=== PATIENT | female | born 1975 | race Caucasian/White ===

== ENCOUNTER → 2016-11-16 | Outpatient (CLI) | payer OTHER ==
[~2016-11-16] MED LIST: DECONGESTANT PO; IBUP600T44 PO; LRT5 PO; PROM25TA PO
[2016-11-22 11:57] LABS: O&P SOURCE OTHER-TOTAL
== END | disposition home or self-care (01) ==
LOC: C.LAB1850 10:17
PROVIDERS: ATTEND Internal Medicine
DX: R19.7 Diarrhea, unspecified (principal); R14.0 Abdominal distension (gaseous); R10.9 Unspecified abdominal pain

== ENCOUNTER → 2017-01-12 | Day surgery (SDC) | payer BC, OTHER ==
[2017-01-03 12:50] VITALS: Ht 152.4 cm; Wt 68.2 kg
[~2017-01-12] VITALS: Ht 152.4 cm; Wt 68.2 kg
[~2017-01-12] MED LIST changes: -IBUP600T44 PO; +LIDOCAINE HCL 2% 2 ML VIAL (20MG/ML) ONE; -LRT5 PO; -PROM25TA PO; +PROPOFOL IV EMULSION 10 MG/ML 20 ML VIAL IV ONE; +SODIUM CHLORIDE 0.9% 500ML 500 ML IV ONE
--- NOTE | 2017-01-12 15:06 | Endo History and Physical ---
History & Physical Date of Service: Jan 12, 2017. Chief Complaint: Diarrhea Referring Physician: Jeanna Baez History of Present Illness 41 yo CF who presents for colonoscopy secondary to diarrhea. Past Surgical History Hx Cardiac Surgery: No Hx Internal Defibrillator: No Hx Pacemaker: No Hx Abdominal Surgery: Yes (CERVICAL CERCLAGE, TUBAL LIGATION) Hx of Implantable Prosthesis: No Hx Post-Op Nausea and Vomiting: Yes Hx Cancer Surgery: No Hx Thoracic Surgery: No Hx Orthopedic: No Hx Urinary Tract Surgery: No Family History Polyp Social History Smoking Status: Never Smoker Hx Substance Use: No Hx Alcohol Use: Yes (OCCASIONAL) Allergies Coded Allergies: No Known Allergies (Unverified , 01/12/17) Current Medications Reported Home Medications Medications Dose Route/Sig Max Daily Dose Days Date Category [Decongestant] 1 Tab PO HS PRN 01/03/17 Reported Vital Signs Weight (Kilograms): 68.18 Height (Feet): 5 Height (Inches): 0 Physical Exam General Appearance: WD/WN, no apparent distress Respiratory/Chest: Auscultation: breath sounds normal Cardiovascular: Heart Auscultation: RRR Abdomen: Bowel Sounds: normal Inspection & Palpation: soft, non-distended, no tenderness, guarding & rebound Assessment and Plan Assessment: 41 yo CF who presents for colonoscopy secondary to diarrhea. Plan: Proceed with colonoscopy.
--- NOTE | 2017-01-12 16:18 | GI REPORT ---
Procedure Date: 01/12/2017 3:56 PM Procedure: Colonoscopy Indications: Chronic diarrhea Medicines: Monitored Anesthesia Care Complications: No immediate complications. Estimated Blood Loss: Estimated blood loss: none. Procedure: Pre-Anesthesia Assessment: - Prior to the procedure, a History and Physical was performed, and patient medications and allergies were reviewed. The patient's tolerance of previous anesthesia was also reviewed. The risks and benefits of the procedure and the sedation options and risks were discussed with the patient. All questions were answered, and informed consent was obtained. Prior Anticoagulants: The patient has taken no previous anticoagulant or antiplatelet agents. ASA Grade Assessment: II - A patient with mild systemic disease. After reviewing the risks and benefits, the patient was deemed in satisfactory condition to undergo the procedure. After I obtained informed consent, the scope was passed under direct vision. Throughout the procedure, the patient's blood pressure, pulse, and oxygen saturations were monitored continuously. The scope was introduced through the anus and advanced to the terminal ileum. The colonoscopy was performed without difficulty. The patient tolerated the procedure well. The quality of the bowel preparation was good. The terminal ileum, ileocecal valve, appendiceal orifice, and rectum were photographed. Findings: Non-bleeding internal hemorrhoids were found during retroflexion. The hemorrhoids were small. Several random biopsies were obtained with cold forceps for histology in the entire colon. Fluid aspiration for cytology was performed in the entire colon. Impression: - Non-bleeding internal hemorrhoids. - Several random biopsies were obtained in the entire colon. - Fluid aspiration was performed. Recommendation: - Resume previous diet. - Continue present medications. - Repeat colonoscopy for surveillance based on pathology results. - Return to primary care physician as previously scheduled. Stephan Robert DO 01/12/2017 4:17:41 PM This report has been signed electronically. Note Initiated On: 01/12/2017 3:56 PM I attest to the content of the Intraoperative Record and orders documented therein, exceptions below
[2017-01-12 16:50] VITALS: BP 134/93; PULSE 76; O2SAT 97
--- NOTE | 2017-01-12 16:53 | Anesthesiology Progress Note ---
Anesthesia Post Op Note Date & Time Jan 12, 2017 at 16:53 Vital Signs Pain Intensity: 0 Vital Signs Past 12 Hours Date Time Temp Pulse Resp B/P (MAP) Pulse Ox O2 Delivery O2 Flow Rate FiO2 01/12/17 16:32 85 20 123/79 (94) 95 Room Air 01/12/17 16:16 112 20 106/69 (81) 94 Room Air 01/12/17 15:09 37.2 85 18 116/87 (97) 93 Room Air Notes Mental Status: alert / awake / arousable, participated in evaluation Pt Amnestic to Procedure: Yes Nausea / Vomiting: adequately controlled Pain: adequately controlled Airway Patency, RR, SpO2: stable & adequate BP & HR: stable & adequate Hydration State: stable & adequate Anesthetic Complications: no major complications apparent
--- NOTE | 2017-01-12 17:08 | Discharge Instructions ---
Endoscopy Patient Instructions Date / Procedure(s) Performed Jan 12, 2017. Colonoscopy Allergy Information Coded Allergies: No Known Allergies (Unverified , 01/12/17) Discharge Date / Findings Jan 12, 2017. Internal hemorrhoids Random colon biopsies Stool aspirate collected Medication Instructions OK to resume all medications today as prescribed Medications Dose Route/Sig Max Daily Dose Days Date Category [Decongestant] 1 Tab PO HS PRN 01/03/17 Reported Provider Instructions Activity Restrictions - No exercising or heavy lifting for 24 hours. - Do not drink alcohol the day of the procedure. - Do not drive a car or operate machinery until the day after the procedure. - Do not make any important decisions or sign important papers in 24 hours after the procedure. Following Day: - Return to full activity which may include returning to work/school. Diet Start your diet with liquids and light foods (jello, soup, juice, toast). Then eat your usual diet if not nauseated. Treatment For Common After Affects For mild abdominal pain, bloating, or excessive gas: - Rest - Eat lightly - Lie on right side Follow-Up Information Follow-up with [facility] as scheduled Anesthesia Information What You Should Know You have had a procedure that required some medicine to reduce anxiety and discomfort. This treatment is called moderate sedation. After receiving the treatment, you may be sleepy, but you will be able to breathe on your own. The effects of the treatment may last for several hours. Follow these instructions along with Activity/Diet recommendations noted above: * Do NOT do anything where dizziness or clumsiness would be dangerous. * Rest quietly at home today, then you can be up and about tomorrow. * Have a responsible person stay with you the rest of today. * You may have had an I.V. today. If so, you may take the dressing off later today. Recommendations Call your doctor if: * Trouble breathing * Continuous vomiting for more than 24 hours * Temperature above 101 degrees * Severe abdominal pain or bloating * Pain not relieved by pain medicine ordered * There is increased drainage or redness from any incision * A large amount of rectal bleeding greater than 2-3 tablespoons. (If you had a polyp/s removed or have hemorrhoids, a small amount of blood - from the rectum is to be expected.) * You have any unanswered questions or concerns. IN THE EVENT OF A SERIOUS EMERGENCY, GO TO THE NEAREST EMERGENCY ROOM Your discharge instructions were prepared by provider Stephan Robert. Patient Instructions Signature Page Yamilet Galen Patient (or Guardian) Signature/Date: I have read and understand the instructions given to me by my caregivers. Caregiver/RN/Doctor Signature/Date: The above-named patient and/or guardian has received patient instructions on this date. + Original Patient Signature Page (only) stays with chart. Please make copy for patient.
== END | disposition home or self-care (01) ==
LOC: C.GI 14:36
PROVIDERS: ATTEND Internal Medicine
DX: K52.9 Noninfective gastroenteritis and colitis, unspecified (principal); K64.8 Other hemorrhoids

== ENCOUNTER → 2017-07-04 | Outpatient (CLI) | payer OTHER ==
[~2017-07-04] MED LIST changes: -LIDOCAINE HCL 2% 2 ML VIAL (20MG/ML) ONE; -PROPOFOL IV EMULSION 10 MG/ML 20 ML VIAL IV ONE; -SODIUM CHLORIDE 0.9% 500ML 500 ML IV ONE
== END | disposition home or self-care (01) ==
LOC: C.PAPS 14:52
PROVIDERS: ATTEND Obstetrics & Gynecology
DX: Z01.419 Encounter for gynecological examination (general) (routine) without abnormal findings (principal)

== ENCOUNTER → 2018-02-23 | Outpatient (CLI) | payer OTHER ==
--- NOTE | 2018-02-23 09:52 | DIAGNOSTIC IMAGING REPORT ---
GI W/AIR SMALL BOWEL ROUTINE CLINICAL HISTORY: 43 years-old Female presenting with K52.9 Colitis, possible enteritis/jejunitis evident on recent CT. TECHNIQUE: An abdominal count room clerk radiograph was performed. A standard air contrast upper GI series was then performed. Spot images of the esophagus and stomach were obtained in multiple obliquities with upright and prone. The patient then consumed several of thin barium and a small follow-through was performed. Overhead radiographs and spot compression images were obtained. COMPARISON: CT from 02/17/2018. FINDINGS: The patient swallowed barium without difficulty. The esophagus is structurally normal without evidence of intrinsic or extrinsic mass. The esophageal mucosal pattern is normal. No gastroesophageal reflux was elicited by having the patient perform the Valsalva maneuver. The gastroesophageal junction distends normally. The stomach is normal in configuration and demonstrates normal distensibility. No mass or ulceration is identified. There was no evidence of gastritis. The duodenal bulb and sweep are unremarkable. The abdominal count room clerk radiograph shows nonobstructive bowel gas pattern and no gross pneumoperitoneum. No calcifications project over the kidneys. Multiple pelvic phleboliths noted. On the small bowel follow-through, there is normal transit time with contrast identified in the colon at 20 minutes. The small bowel mucosal pattern is normal. There is no evidence of stricture or mass. The distal/terminal ileum are normal in appearance on the spot compression views. The cecum, ascending colon, transverse colon are opacified with contrast and are normal appearing. Fluoroscopy dosage (mGy): Not available. Fluoroscopy time: 4.6 minutes. Number or time of fluoroscopic spot images: 30. IMPRESSION: Normal fluoroscopic examination of the esophagus, stomach, small bowel, and proximal colon. Electronically signed by: Cholo Jackson M.D. 02/23/2018 9:51 AM Dictated Date/Time: 02/23/2018 9:41 AM
== END | disposition home or self-care (01) ==
LOC: C.RAD 07:52
PROVIDERS: ATTEND Internal Medicine
DX: K52.9 Noninfective gastroenteritis and colitis, unspecified (principal)

== ENCOUNTER 2023-06-24 17:38 | Inpatient (IN) ==
[2023-06-24] MEDS ORDERED: KETOROLAC TROMETHAMINE 15 MG/ML VIAL IV ONE (18:00)
--- NOTE | 2023-06-24 18:03 | Emergency Department Note ---
Impression & Plan Pneumonia, Sepsis ED Provider Note NAME: FELTON GRIFFIN AGE: 48 SEX: F : 1975 ARRIVES VIA: Walk-In INFORMANT: Patient ED PROVIDER(S): Edmond Swift DO CHIEF COMPLAINT: fevers and shaking chills HPI: Patient is a 48-year-old female who presents to the ER for cough, congestion, and shaking chills. Symptoms started a week ago. She was seen evaluated on and treated for pneumonia and placed on azithromycin. She notes her symptoms have gotten significantly worse. She notes when she coughs or stands up she does urinate her self. No back pain. No belly pain. No dysuria, urgency, or frequency. No other exacerbating or remitting factors. ADDITIONAL HISTORY OBTAINED: Per HPI Chronic Medical/Social Conditions Affecting Care: Per HPI PAST MEDICAL HISTORY:See Below PAST SURGICAL HISTORY:See Below FAMILY HISTORY:See Below SOCIAL HISTORY:See Below HOME MEDICATIONS:See Below ALLERGIES:See Below VITALS:See Below PHYSICAL EXAMINATION: GENERAL: Sitting up in bed, alert, slightly ill-appearing EYE EXAM: normal conjunctiva. PERRL and EOM's grossly intact. OROPHARYNX: no exudate, no erythema, lips, buccal mucosa, and tongue normal and mucous membranes are moist NECK: supple, no nuchal rigidity, no adenopathy, non-tender LUNGS: Diffuse wheezing bilaterally. Normal chest wall mechanics HEART: Tachycardic, S1 normal and S2 normal ABDOMEN: abdomen soft, non-tender, normo-active bowel sounds, no masses, no rebound or guarding. UPPER EXTREMITIES: upper extremities are grossly normal. LOWER EXTREMITIES: No pitting edema. NEURO EXAM: Normal sensorium, cranial nerves II-XII grossly intact, normal speech, no gross weakness of arms, no gross weakness of legs. MEDICAL DECISION MAKING: Patient is a 48-year-old female who presents ER for above-stated complaint. IV was established blood work was obtained. She was found to be febrile and tachycardic. Chest x-ray shows a worsening right lower lobe infiltrate. Labs show no significant leukocytosis or anemia. INR unremarkable. BMP on LFTs bilirubin was unremarkable. Pro-Gonsalo was normal. Troponin was negative. UA was contaminated. was negative. Viral panel was negative. Patient was given IV fluids and IV Rocephin. She was updated bedside. Heart rate trended down. She was discussed with the hospitalist Dr. Matthew for further evaluation management and treatment of her pneumonia/sepsis. External Records Reviewed: 02/[address] Garvey for shoulder tendinitis Consults/Care Managements Discussions: Per [facility] Triage Nursing notes reviewed. Limited review of prior medical records performed Vital Signs: reviewed and remarkable for febrile and tachy Differential diagnosis: Differential diagnosis includes etiologies such as sepsis, UTI, pneumonia, metabolic, electrolyte abnormalities, cardiac sources, intracerebral event, toxicologic, neurological, as well as others were entertained. ER treatment provided: See below Diagnostics interpreted by me include EKG and cardiac monitoring as listed below: -Cardiac Monitoring: An order was placed for continuous cardiac monitoring. The monitor shows a rate of 120 with sinus rhythm. -ECG: Sinus tachycardia rate of 106 Normal axis No PVCs QTc 419 -Laboratory studies:Interpreted by me as stated above in MDM and shown below. Imaging studies: Xrays: As interpreted by me: Portable AP upright 1 view of the chest shows no focal infiltrate CTs show: none Procedures:none Critical Care: None Past Med/Surg History Social History Smoking Status: Never smoker Preferred Language: Macanese Feels Safe at Home: Yes Allergies Allergies Allergy/AdvReac Type Severity Reaction Status Date / Time No Known Allergies Allergy Unverified 06/24/23 18:17 Home Meds Previous Rx's Medication Instructions Recorded albuterol sulfate 90 mcg/actuation 1 inh inhalation Q6H PRN shortness 06/21/23 aerosol inhaler of breath or wheezing #8.5 grams azithromycin 250 mg tablet 250 mg PO DAILY 4 days #4 tabs 06/21/23 Results & Data (ED) Vital Signs Vital Signs - 24 hr 06/24/23 17:41 06/24/23 17:45 06/24/23 17:45 Temperature 39.0 C H Temperature Source Oral Pulse Rate 131 H 106 H Pulse Rate [Apical] Pulse Rate from SpO2 Sensor Pulse Rhythm Regular Regular Pulse Rhythm [Apical] Pulse Strength Normal Pulse Strength [Apical] Respiratory Rate 20 22 Respiratory Effort / Characteristics Non-Labored Spontaneous Respiratory Depth Normal Respiratory Pattern Regular Blood Pressure 134/80 Blood Pressure [Left Arm] Blood Pressure Mean 98 Blood Pressure Mean [Left Arm] Blood Pressure Position Sitting Blood Pressure Position [Left Arm] Pulse Oximetry 94 92 Oxygen Delivery Method Room Air Room Air Room Air Sepsis Recent Fever Within 48 Hours Yes Sepsis New/Unexplained Change in Mental Status No Sepsis Action Taken by Nursing Physician Notified 06/24/23 18:30 06/24/23 18:30 06/24/23 19:00 Temperature 38.9 C H Temperature Source Pulse Rate 113 H 101 H Pulse Rate [Apical] 106 H Pulse Rate from SpO2 Sensor Pulse Rhythm Pulse Rhythm [Apical] Regular Pulse Strength Pulse Strength [Apical] Normal Respiratory Rate 22 25 H Respiratory Effort / Characteristics Non-Labored Spontaneous Respiratory Depth Normal Respiratory Pattern Regular Blood Pressure 130/89 Blood Pressure [Left Arm] 122/85 Blood Pressure Mean 101 Blood Pressure Mean [Left Arm] 97 Blood Pressure Position Blood Pressure Position [Left Arm] Sitting Pulse Oximetry 92 93 Oxygen Delivery Method Room Air Room Air Sepsis Recent Fever Within 48 Hours Sepsis New/Unexplained Change in Mental Status Sepsis Action Taken by Nursing 06/24/23 19:30 06/24/23 20:00 06/24/23 20:30 Temperature 37.8 C H Temperature Source Pulse Rate 101 H 95 H 98 H Pulse Rate [Apical] Pulse Rate from SpO2 Sensor 98 H Pulse Rhythm Pulse Rhythm [Apical] Pulse Strength Pulse Strength [Apical] Respiratory Rate 21 28 H 27 H Respiratory Effort / Characteristics Respiratory Depth Respiratory Pattern Blood Pressure 133/94 141/92 H 136/83 Blood Pressure [Left Arm] Blood Pressure Mean 108 103 104 Blood Pressure Mean [Left Arm] Blood Pressure Position Blood Pressure Position [Left Arm] Pulse Oximetry 92 94 94 Oxygen Delivery Method Room Air Room Air Room Air Sepsis Recent Fever Within 48 Hours Sepsis New/Unexplained Change in Mental Status Sepsis Action Taken by Nursing 06/24/23 21:00 06/24/23 21:03 06/24/23 21:30 Temperature Temperature Source Pulse Rate 96 H 101 H Pulse Rate [Apical] 91 H Pulse Rate from SpO2 Sensor 97 H Pulse Rhythm Pulse Rhythm [Apical] Pulse Strength Pulse Strength [Apical] Respiratory Rate 25 H 21 28 H Respiratory Effort / Characteristics Non-Labored Spontaneous Respiratory Depth Respiratory Pattern Blood Pressure 109/88 122/85 Blood Pressure [Left Arm] Blood Pressure Mean 100 100 Blood Pressure Mean [Left Arm] Blood Pressure Position Blood Pressure Position [Left Arm] Pulse Oximetry 94 98 94 Oxygen Delivery Method Room Air Room Air Room Air Sepsis Recent Fever Within 48 Hours Sepsis New/Unexplained Change in Mental Status Sepsis Action Taken by Nursing 06/24/23 22:00 06/24/23 22:25 06/24/23 22:30 Temperature Temperature Source Pulse Rate 95 H 93 H 93 H Pulse Rate [Apical] Pulse Rate from SpO2 Sensor Pulse Rhythm Pulse Rhythm [Apical] Pulse Strength Pulse Strength [Apical] Respiratory Rate 20 23 Respiratory Effort / Characteristics Respiratory Depth Respiratory Pattern Blood Pressure 133/82 118/79 Blood Pressure [Left Arm] Blood Pressure Mean 95 87 Blood Pressure Mean [Left Arm] Blood Pressure Position Blood Pressure Position [Left Arm] Pulse Oximetry 94 93 Oxygen Delivery Method Room Air Room Air Sepsis Recent Fever Within 48 Hours Sepsis New/Unexplained Change in Mental Status Sepsis Action Taken by Nursing Laboratory Data 06/24/23 18:25 06/24/23 18:25 Lab Results 06/24/23 06/24/23 06/24/23 Range/Units 18:25 18:41 18:50 WBC 7.15 (4.8-10.8) K/ul RBC 4.57 (4.20-5.40) M/uL Hgb 13.7 (12.0-16.0) g/dl Hct 39.6 (37.0-47.0) % MCV 86.7 (80.0-100.0) fL MCH 30.0 (25.0-34.0) pg MCHC 34.6 (32.0-36.0) g/dL RDW Std Deviation 40.9 (36.4-46.3) fL RDW Coeff of Jamaal 13.0 (11.5-14.5) % Plt Count 287 (130-400) K/uL MPV 9.4 (9.4-12.4) fL Immature Gran % (Auto) 0.4 % Neut % (Auto) 77.5 % Lymph % (Auto) 14.1 % Gray % (Auto) 7.4 % Eos % (Auto) 0.3 % Baso % (Auto) 0.3 % Neut # (Auto) 5.54 (1.40-6.50) K/uL Lymph # (Auto) 1.01 L (1.20-3.40) K/uL Gray # (Auto) 0.53 (0.11-0.59) K/uL Eos # (Auto) 0.02 (0.00-0.50) K/uL Baso # (Auto) 0.02 (0.00-0.20) K/uL Immature Gran # (Auto) 0.03 (0.01-0.20) K/uL PT 11.5 (9.0-12.0) Seconds INR 1.1 (0.9-1.1) APTT 31.6 H (21.0-31.0) Seconds PTT Ratio 1.1 Sodium 134 L (136-145) mmol/L Potassium 3.5 (3.5-5.1) mmol/L Chloride 102 (98-107) mmol/L Carbon Dioxide 25 (21-32) mmol/L Anion Gap 7 (3-11) BUN 9 (6-23) mg/dl Creatinine 0.79 (0.6-1.2) mg/dl Est Cr Clr Drug Dosing 78.2 ml/min Est GFR ( Amer) 101.2 ml/min Est GFR (Non-Af Amer) 87.3 ml/min BUN/Creatinine Ratio 11.4 (10-20) Glucose 102 H (70-99(Fasting)) mg/dl Lactate 0.8 (0.4-2.0) mmol/L Calcium 8.9 (8.6-10.3) mg/dl Magnesium 2.0 (1.7-2.4) mg/dl Total Bilirubin 0.3 (0.2-1.0) mg/dl AST 26 (13-39) U/L ALT 31 (7-52) U/L Alkaline Phosphatase 51 (34-104) U/L Troponin I High Sens 4.5 (0-14) pg/ml Total Protein 7.2 (6.0-8.3) gm/dl Albumin 3.8 (3.4-5.0) gm/dl Globulin 3.4 (2.5-4.0) gm/dl Albumin/Globulin Ratio 1.1 (0.9-2) Procalcitonin < 0.05 (0-0.5) ng/ml Urine Color Yellow Urine Appearance Clear (Clear) Urine pH 5.5 (4.5-7.5) Ur Specific Ono 1.031 H (1.000-1.030) Urine Protein 2+ H (Negative) Urine Glucose (UA) Negative (Negative) Urine Ketones Trace H (Negative) Urine Blood Trace H (Negative) Urine Nitrite Negative (Negative) Urine Bilirubin Negative (Negative) Urine Urobilinogen Negative (Negative) Ur Leukocyte Esterase Negative (Negative) Urine WBC (Auto) 1-5 (0-5) /hpf Urine RBC (Auto) 5-10 H (0-4) /hpf U Hyaline Cast (Auto) 1-5 (0-5) /lpf U Epithel Cells (Auto) 20-30 H (0-5) /lpf Urine Bacteria (Auto) Negative (Negative) Urine Test (Negative) Stl C. diff Tox B Gene (Neg) Adenovirus (PCR) Not Detected (NotDetected) B. pertussis DNA (PCR) Not Detected (NotDetected) B.parapertussis DNA PCR Not Detected (NotDetected) C. pneumoniae DNA (PCR) Not Detected (NotDetected) Coronavirus OC43 (PCR) Not Detected (NotDetected) Coronavirus HKU1 (PCR) Not Detected (NotDetected) Coronavirus 229E (PCR) Not Detected (NotDetected) SARS-CoV-2 (PCR) Not Detected (NotDetected) Coronavirus NL63 (PCR) Not Detected (NotDetected) Human Metapneumovir PCR Not Detected (NotDetected) Influenza Type A (PCR) Not Detected (NotDetected) Influenza Type B (PCR) Not Detected (NotDetected) M. pneumoniae (PCR) Not Detected (NotDetected) Parainfluenza 1 (PCR) Not Detected (NotDetected) Parainfluenza 2 (PCR) Not Detected (NotDetected) Parainfluenza 3 (PCR) Not Detected (NotDetected) Parainfluenza 4 (PCR) Not Detected (NotDetected) RSV (PCR) Not Detected (NotDetected) Entero/Rhino (PCR) Not Detected (NotDetected) 06/24/23 Range/Units 21:24 WBC (4.8-10.8) K/ul RBC (4.20-5.40) M/uL Hgb (12.0-16.0) g/dl Hct (37.0-47.0) % MCV (80.0-100.0) fL MCH (25.0-34.0) pg MCHC (32.0-36.0) g/dL RDW Std Deviation (36.4-46.3) fL RDW Coeff of Jamaal (11.5-14.5) % Plt Count (130-400) K/uL MPV (9.4-12.4) fL Immature Gran % (Auto) % Neut % (Auto) % Lymph % (Auto) % Gray % (Auto) % Eos % (Auto) % Baso % (Auto) % Neut # (Auto) (1.40-6.50) K/uL Lymph # (Auto) (1.20-3.40) K/uL Gray # (Auto) (0.11-0.59) K/uL Eos # (Auto) (0.00-0.50) K/uL Baso # (Auto) (0.00-0.20) K/uL Immature Gran # (Auto) (0.01-0.20) K/uL PT (9.0-12.0) Seconds INR (0.9-1.1) APTT (21.0-31.0) Seconds PTT Ratio Sodium (136-145) mmol/L Potassium (3.5-5.1) mmol/L Chloride (98-107) mmol/L Carbon Dioxide (21-32) mmol/L Anion Gap (3-11) BUN (6-23) mg/dl Creatinine (0.6-1.2) mg/dl Est Cr Clr Drug Dosing ml/min Est GFR ( Amer) ml/min Est GFR (Non-Af Amer) ml/min BUN/Creatinine Ratio (10-20) Glucose (70-99(Fasting)) mg/dl Lactate (0.4-2.0) mmol/L Calcium (8.6-10.3) mg/dl Magnesium (1.7-2.4) mg/dl Total Bilirubin (0.2-1.0) mg/dl AST (13-39) U/L ALT (7-52) U/L Alkaline Phosphatase (34-104) U/L Troponin I High Sens (0-14) pg/ml Total Protein (6.0-8.3) gm/dl Albumin (3.4-5.0) gm/dl Globulin (2.5-4.0) gm/dl Albumin/Globulin Ratio (0.9-2) Procalcitonin (0-0.5) ng/ml Urine Color Urine Appearance (Clear) Urine pH (4.5-7.5) Ur Specific Ono (1.000-1.030) Urine Protein (Negative) Urine Glucose (UA) (Negative) Urine Ketones (Negative) Urine Blood (Negative) Urine Nitrite (Negative) Urine Bilirubin (Negative) Urine Urobilinogen (Negative) Ur Leukocyte Esterase (Negative) Urine WBC (Auto) (0-5) /hpf Urine RBC (Auto) (0-4) /hpf U Hyaline Cast (Auto) (0-5) /lpf U Epithel Cells (Auto) (0-5) /lpf Urine Bacteria (Auto) (Negative) Urine Test Negative (Negative) Stl C. diff Tox B Gene Negative Cdiff Gene (Neg) Adenovirus (PCR) (NotDetected) B. pertussis DNA (PCR) (NotDetected) B.parapertussis DNA PCR (NotDetected) C. pneumoniae DNA (PCR) (NotDetected) Coronavirus OC43 (PCR) (NotDetected) Coronavirus HKU1 (PCR) (NotDetected) Coronavirus 229E (PCR) (NotDetected) SARS-CoV-2 (PCR) (NotDetected) Coronavirus NL63 (PCR) (NotDetected) Human Metapneumovir PCR (NotDetected) Influenza Type A (PCR) (NotDetected) Influenza Type B (PCR) (NotDetected) M. pneumoniae (PCR) (NotDetected) Parainfluenza 1 (PCR) (NotDetected) Parainfluenza 2 (PCR) (NotDetected) Parainfluenza 3 (PCR) (NotDetected) Parainfluenza 4 (PCR) (NotDetected) RSV (PCR) (NotDetected) Entero/Rhino (PCR) (NotDetected) Administered Medications Benzonatate (Benzonatate 100 Mg Capsule) 100 mg PO TID PRN PRN Reason: Cough Stop: 07/24/23 20:50 Last Admin: 06/24/23 20:59 Dose: 100 mg Documented By: DML Discontinued Medications Acetaminophen (Acetaminophen 325 Mg Tab) 650 mg PO NOW STA Stop: 06/24/23 19:27 Last Admin: 06/24/23 19:35 Dose: 650 mg Documented By: DML Sodium Chloride (Nss) 1,000 mls @ 999 mls/hr IV .Q1H1M TRELL Stop: 06/24/23 20:00 Last Infusion: 06/24/23 21:41 Dose: Infused Documented By: Admin: 06/24/23 20:40 Dose: 999 mls/hr Documented By: Infusion: 06/24/23 20:30 Dose: Infused Documented By: Admin: 06/24/23 19:29 Dose: 999 mls/hr Documented By: HAYLEE Ceftriaxone Sodium (Rocephin) 2,000 mg in 50 mls @ 100 mls/hr IV NOW STA Stop: 06/24/23 19:03 Last Infusion: 06/24/23 20:01 Dose: Infused Documented By: Admin: 06/24/23 19:31 Dose: 100 mls/hr Documented By: HAYLEE Metronidazole (Flagyl) 500 mg in 100 mls @ 100 mls/hr IV NOW STA; Protocol Stop: 06/24/23 21:39 Last Admin: 06/24/23 21:46 Dose: 100 mls/hr Documented By: HAYLEE Ipratropium Bivalve (Ipratropium Bivalve Neb Soln 0.02% 2.5 Ml Vial) 0.5 mg INH NOW STA Stop: 06/24/23 20:45 Last Admin: 06/24/23 21:02 Dose: 0.5 mg Documented By: FRANKLIN Ketorolac Tromethamine (Ketorolac Tromethamine 15 Mg/Ml Vial) 15 mg IV NOW ONE Stop: 06/24/23 18:01 Last Admin: 06/24/23 19:28 Dose: 15 mg Documented By: HAYLEE Levalbuterol HCl (Levalbuterol 1.25 Mg/3 Ml Neb) 1.25 mg NEB NOW STA Stop: 06/24/23 20:45 Last Admin: 06/24/23 21:02 Dose: 1.25 mg Documented By: FRANKLIN Imaging Data Radiologist's Impression: Chest X-Ray 06/24/23 17:45 SINGLE VIEW CHEST CLINICAL HISTORY: Sepsis. FINDINGS: An AP, portable, upright chest radiograph is compared to chest x-ray and chest CT dated 06/21/2023. The cardiomediastinal silhouette is unremarkable. There is mild patchy airspace consolidation at the right lung base. No large pleural effusion or pneumothorax is seen. The bony thorax is grossly intact. IMPRESSION: Airspace consolidation is seen at the right lung base, typical for pneumonia/aspiration pneumonitis. This has modestly worsened as compared to 06/21/2023. Radiographic follow-up to resolution is recommended. ACT 112: Negative or not required by law. Electronically signed by: Thomas Cruz M.D. 06/24/2023 6:12 PM Discharge Plan Visit Data Chief Complaint: Cough Stated Complaint: PNEUMONIA NOT IMPROVING,COUGH,CHILLS,INCONTINENCE ED Provider: Edmond Swift Discharge Problem: Pneumonia, Sepsis Forms Stand Alone Forms: [facility] [employer] Prescriptions Prescriptions: No Action azithromycin 250 mg tablet 250 mg PO DAILY 4 Days Qty: 4 0RF Rx Instructions: start on day 2 of therapy albuterol sulfate 90 mcg/actuation HFA aerosol inhaler 1 inh inhalation Q6H PRN (Reason: shortness of breath or wheezing) Qty: 8.5 0RF Referrals Referrals: Junior Grimaldo MD [Physician] - Discharge Problem: Pneumonia Qualifiers: Pneumonia type: due to unspecified organism Laterality: unspecified laterality Lung location: unspecified part of lung Qualified Code(s): J18.9 - Pneumonia, unspecified organism Sepsis Qualifiers: Sepsis type: sepsis due to unspecified organism Sepsis acute organ dysfunction status: unspecified Qualified Code(s): A41.9 - Sepsis, unspecified organism
--- NOTE | 2023-06-24 18:13 | XRay Report ---
SINGLE VIEW CHEST CLINICAL HISTORY: Sepsis. FINDINGS: An AP, portable, upright chest radiograph is compared to chest x-ray and chest CT dated . The cardiomediastinal silhouette is unremarkable. There is mild patchy airspace consolidatio n at the right lung base. No large pleural effusion or pneumothorax is seen. The bony thorax is gross ly intact. IMPRESSION: Airspace consolidation is seen at the right lung base, typical for pneumonia/aspiration p neumonitis. This has modestly worsened as compared to 06/21/2023. Radiographic follow-up to resolutio n is recommended. ACT 112: Negative or not required by law. Electronically signed by: Thomas Cruz M.D. 06/24/2023 6:12 PM
[2023-06-24] MEDS ORDERED: cefTRIAXone SODIUM 2,000 MG/50 ML BAG IV STA (18:34)
[2023-06-24 19:07] LABS: Appearance Urine Clear (Clear); Bacteria Urine Automated Negative (Negative); Bilirubin Urine Negative (Negative); Blood Urine Trace (Negative); Color Urine Yellow; Epithelial Cell Urine Auto 20-30 /lpf (0-5); Glucose Urine UA Negative (Negative); Ketones Urine Trace (Negative); Leukocyte Esterase Urine Negative (Negative); Nitrite Urine Negative (Negative); Protein Urine 2+ (Negative); Specific Gravity Urine 1.031 (1.000-1.030); Urobilinogen Urine Negative (Negative); pH Urine 5.5 (4.5-7.5)
[2023-06-24 19:21] LABS: Basophils # (auto) 0.02 K/uL (0.00-0.20); Basophils % (auto) 0.3 %; Eosinophils # (auto) 0.02 K/uL (0.00-0.50); Eosinophils % (auto) 0.3 %; Hematocrit (blood only) 39.6 % (37.0-47.0); Hemoglobin 13.7 g/dl (12.0-16.0); Immature Granulocytes # (auto) 0.03 K/uL (0.01-0.20); Immature Granulocytes % (auto) 0.4 %; Lymphocytes # (auto) 1.01 K/uL (1.20-3.40); Lymphocytes % (auto) 14.1 %; Mean Corpuscular Hgb Conc 34.6 g/dL (32.0-36.0); Mean Corpuscular Volume 86.7 fL (80.0-100.0); Mean Platelet Volume 9.4 fL (9.4-12.4); Monocytes # (auto) 0.53 K/uL (0.11-0.59); Monocytes % (auto) 7.4 %; Neutrophils # (auto) 5.54 K/uL (1.40-6.50); Neutrophils % (auto) 77.5 %; Platelet Count 287 K/uL (130-400); RDW Standard Deviation 40.9 fL (36.4-46.3); Red Blood Count 4.57 M/uL (4.20-5.40); White Blood Count 7.15 K/ul (4.8-10.8)
[2023-06-24] MEDS ORDERED: ACETAMINOPHEN 325 MG TAB PO STA (19:26)
[2023-06-24 19:27] LABS: Albumin Globulin Ratio 1.1 (0.9-2); Albumin Level 3.8 gm/dl (3.4-5.0); BUN Creatinine Ratio 11.4 (10-20); Bilirubin,Total 0.3 mg/dl (0.2-1.0); Calcium 8.9 mg/dl (8.6-10.3); Creatinine Clr Calc Pharmacy 78.2 ml/min; Est GFR (African American) 101.2 ml/min; Est GFR (Non-African American) 87.3 ml/min; Globulin 3.4 gm/dl (2.5-4.0); Potassium 3.5 mmol/L (3.5-5.1); Total Protein 7.2 gm/dl (6.0-8.3)
[2023-06-24] MEDS: SODIUM CHLORIDE 0.9% 1,000 ML IV SCH ×2 (19:29→20:40)
[2023-06-24 19:32] LABS: Troponin I High Sensitivity 4.5 pg/ml (0-14)
[2023-06-24 19:36] LABS: INR 1.1 (0.9-1.1); Partial Thromboplastin Ratio 1.1; Partial Thromboplastin Time 31.6 Seconds (21.0-31.0); Prothrombin Time 11.5 Seconds (9.0-12.0)
[2023-06-24 19:51] LABS: Adenovirus PCR Not Detected (NotDetected); Bordetella parapertussis PCR Not Detected (NotDetected); Bordetella pertussis PCR Not Detected (NotDetected); Chlamydia pneumoniae PCR Not Detected (NotDetected); Coronavirus 229E PCR Not Detected (NotDetected); Coronavirus CoV-2 (COVID19)PCR Not Detected (NotDetected); Coronavirus HKU1 PCR Not Detected (NotDetected); Coronavirus NL63 PCR Not Detected (NotDetected); Coronavirus OC43PCR Not Detected (NotDetected); Human Metapneumovirus PCR Not Detected (NotDetected); Influenza A PCR Not Detected (NotDetected); Influenza B PCR Not Detected (NotDetected); Mycoplasma pneumoniae PCR Not Detected (NotDetected); Parainfluenza Virus 1 PCR Not Detected (NotDetected); Parainfluenza Virus 2 PCR Not Detected (NotDetected); Parainfluenza Virus 3 PCR Not Detected (NotDetected); Parainfluenza Virus 4 PCR Not Detected (NotDetected); Respiratory Syncytial VirusPCR Not Detected (NotDetected); Rhinovirus/Enterovirus PCR Not Detected (NotDetected)
[2023-06-24] MEDS ORDERED: NSS + 20MEQ KCL 20 MEQ/1,000 ML BAG IV ONE (19:59)
[2023-06-24] MEDS ORDERED: metroNIDAZOLE 500 MG/100 ML BAG IV STA (20:40)
[2023-06-24] MEDS ORDERED: LEVALBUTEROL 1.25 MG/3 ML NEB NEB STA (20:44)
[2023-06-24] MEDS ORDERED: XOPENEX/ATROVENT 1.25mg/0.5MG NEB COMBO NEB STA (20:44)
[2023-06-24] MEDS ORDERED: IPRATROPIUM BROMIDE NEB SOLN 0.02% 2.5 ML VIAL INH STA (20:44)
--- NOTE | 2023-06-24 20:44 | History & Physical Report ---
Date of Service June 24, 2023 Assessment & Plan (1) Sepsis: Plan: Secondary to community-acquired pneumonia Mycoplasma on PCR from recent ER visit Failed outpatient treatment Antibiotic associated diarrhea Rule out C. difficile Medical telemetry CS, Levaquin Stool C. difficile DVT prophylaxis Lovenox subcu Full code Text document was generated using [employer] voice recognition software. It may contain grammatical or spelling errors. Kindly contact undersigned for clarification of any documentation item in question. History of Present Illness Chief Complaint: Worsening cough, weakness Primary Care Provider: NO PCP History obtained from patient, family, and records. No significant medical history. 1 week history of dry cough symptoms associated with chest pain, myalgias and fever. Denies aspiration. Not sure about sick contacts. Patient has received COVID-19 vaccination. Patient seen at the ER 3 days ago. Chest x-ray showed right middle lobe pneumonia. PCR test positive for mycoplasma pneumonia. Patient discharged on azithromycin and albuterol inhaler course. Worsening symptoms and shortness of breath despite compliance with medications. Cough symptoms now junky. Loose stools without abdominal pain. Patient returned to ER for evaluation. Ceftriaxone administered at the ER. Medical History as above Surgical History : Family History : Personal/Social history : Allergies Allergy/AdvReac Type Severity Reaction Status Date / Time No Known Allergies Allergy Unverified 06/24/23 18:17 Home Medications Medication Instructions Recorded Confirmed Type albuterol sulfate 90 mcg/actuation 1 inh inhalation Q6H PRN shortness 06/21/23 06/24/23 Rx aerosol inhaler of breath or wheezing #8.5 grams azithromycin 250 mg tablet 250 mg PO DAILY 4 days #4 tabs 06/21/23 06/24/23 Rx Past Med/Surg History Social History Smoking Status: Never smoker Preferred Language: German Communication Ability: Effective Ink Technician Required: No Beliefs That Will Affect Care: None Current Living Situation: Spouse Feels Safe at Home: Yes Safety Concerns: Feels Safe At This Time Assistive Devices: None Results & Data Results & Data Vital Signs (Past 12 Hours) Vital Signs Temp Pulse Pulse Resp BP BP Pulse Ox 06/24/23 20:00 37.8 C H 95 H 28 H 141/92 H 94 06/24/23 19:30 101 H 21 133/94 92 06/24/23 19:00 38.9 C H 101 H 25 H 130/89 93 06/24/23 18:30 106 H 22 122/85 92 06/24/23 18:30 113 H 06/24/23 17:45 106 H 22 92 06/24/23 17:45 06/24/23 17:41 39.0 C H 131 H 20 134/80 94 O2 Del Method 06/24/23 20:00 Room Air 06/24/23 19:30 Room Air 06/24/23 19:00 Room Air 06/24/23 18:30 Room Air 06/24/23 18:30 06/24/23 17:45 Room Air 06/24/23 17:45 Room Air 06/24/23 17:41 Room Air Laboratory Results Laboratory Results WBC 7.15 K/ul (4.8-10.8) 06/24/23 18:25 RBC 4.57 M/uL (4.20-5.40) 06/24/23 18:25 Hgb 13.7 g/dl (12.0-16.0) 06/24/23 18:25 Hct 39.6 % (37.0-47.0) 06/24/23 18:25 MCV 86.7 fL (80.0-100.0) 06/24/23 18:25 MCH 30.0 pg (25.0-34.0) 06/24/23 18:25 MCHC 34.6 g/dL (32.0-36.0) 06/24/23 18:25 RDW Std Deviation 40.9 fL (36.4-46.3) 06/24/23 18:25 RDW Coeff of [place]al 13.0 % (11.5-14.5) 06/24/23 18: Plt Count 287 K/uL (130-400) 06/24/23 18:25 MPV 9.4 fL (9.4-12.4) 06/24/23 18:25 Immature Gran % (Auto) 0.4 % 06/24/23 18:25 Neut % (Auto) 77.5 % 06/24/23 18:25 Lymph % (Auto) 14.1 % 06/24/23 18:25 [place] % (Auto) 7.4 % 06/24/23 18:25 Eos % (Auto) 0.3 % 06/24/23 18:25 Baso % (Auto) 0.3 % 06/24/23 18:25 Neut # (Auto) 5.54 K/uL (1.40-6.50) 06/24/23 18:25 Lymph # (Auto) 1.01 K/uL (1.20-3.40) L 06/24/23 18:25 [place] # (Auto) 0.53 K/uL (0.11-0.59) 06/24/23 18:25 Eos # (Auto) 0.02 K/uL (0.00-0.50) 06/24/23 18:25 Baso # (Auto) 0.02 K/uL (0.00-0.20) 06/24/23 18:25 Immature Gran # (Auto) 0.03 K/uL (0.01-0.20) 06/24/23 18:25 PT 11.5 Seconds (9.0-12.0) 06/24/23 18:25 INR 1.1 (0.9-1.1) 06/24/23 18:25 APTT 31.6 Seconds (21.0-31.0) H 06/24/23 18:25 PTT Ratio 1.1 06/24/23 18:25 Sodium 134 mmol/L (136-145) L 06/24/23 18:25 Potassium 3.5 mmol/L (3.5-5.1) 06/24/23 18:25 Chloride 102 mmol/L (98-107) 06/24/23 18:25 Carbon Dioxide 25 mmol/L (21-32) 06/24/23 18:25 Anion Gap 7 (3-11) 06/24/23 18:25 BUN 9 mg/dl (6-23) 06/24/23 18:25 Creatinine 0.79 mg/dl (0.6-1.2) 06/24/23 18:25 Est Cr Clr Drug Dosing 78.2 ml/min 06/24/23 18:25 Est GFR ( Amer) 101.2 ml/min 06/24/23 18:25 Est GFR (Non-Af Amer) 87.3 ml/min 06/24/23 18:25 BUN/Creatinine Ratio 11.4 (10-20) 06/24/23 18:25 Glucose 102 mg/dl (70-99(Fasting)) H 06/24/23 18:25 Lactate 0.8 mmol/L (0.4-2.0) 06/24/23 18:41 Calcium 8.9 mg/dl (8.6-10.3) 06/24/23 18:25 Magnesium 2.0 mg/dl (1.7-2.4) 06/24/23 18:25 Total Bilirubin 0.3 mg/dl (0.2-1.0) 06/24/23 18:25 AST 26 U/L (13-39) 06/24/23 18:25 ALT 31 U/L (7-52) 06/24/23 18:25 Alkaline Phosphatase 51 U/L (34-104) 06/24/23 18:25 Troponin I High Sens 4.5 pg/ml (0-14) 06/24/23 18:25 Total Protein 7.2 gm/dl (6.0-8.3) 06/24/23 18:25 Albumin 3.8 gm/dl (3.4-5.0) 06/24/23 18:25 Globulin 3.4 gm/dl (2.5-4.0) 06/24/23 18:25 Albumin/Globulin Ratio 1.1 (0.9-2) 06/24/23 18:25 Procalcitonin < 0.05 ng/ml (0-0.5) 06/24/23 18:25 Urine Color Yellow 06/24/23 18:50 Urine Appearance Clear (Clear) 06/24/23 18:50 Urine pH 5.5 (4.5-7.5) 06/24/23 18:50 Ur Specific [place] 1.031 (1.000-1.030) H 06/24/23 18:50 Urine Protein 2+ (Negative) H 06/24/23 18:50 Urine Glucose (UA) Negative (Negative) 06/24/23 18:50 Urine Ketones Trace (Negative) H 06/24/23 18:50 Urine Blood Trace (Negative) H 06/24/23 18:50 Urine Nitrite Negative (Negative) 06/24/23 18:50 Urine Bilirubin Negative (Negative) 06/24/23 18:50 Urine Urobilinogen Negative (Negative) 06/24/23 18:50 Ur Leukocyte Esterase Negative (Negative) 06/24/23 18:50 Urine WBC (Auto) 1-5 /hpf (0-5) 06/24/23 18:50 Urine RBC (Auto) 5-10 /hpf (0-4) H 06/24/23 18:50 U Hyaline Cast (Auto) 1-5 /lpf (0-5) 06/24/23 18:50 U Epithel Cells (Auto) 20-30 /lpf (0-5) H 06/24/23 18:50 Urine Bacteria (Auto) Negative (Negative) 06/24/23 18:50 Adenovirus (PCR) Not Detected (NotDetected) 06/24/23 18:50 B. pertussis DNA (PCR) Not Detected (NotDetected) 06/24/23 18:50 B.parapertussis DNA PCR Not Detected (NotDetected) 06/24/23 18:50 C. pneumoniae DNA (PCR) Not Detected (NotDetected) 06/24/23 18:50 Coronavirus OC43 (PCR) Not Detected (NotDetected) 06/24/23 18:50 Coronavirus HKU1 (PCR) Not Detected (NotDetected) 06/24/23 18:50 Coronavirus 229E (PCR) Not Detected (NotDetected) 06/24/23 18:50 SARS-CoV-2 (PCR) Not Detected (NotDetected) 06/24/23 18:50 Coronavirus NL63 (PCR) Not Detected (NotDetected) 06/24/23 18:50 Human Metapneumovir PCR Not Detected (NotDetected) 06/24/23 18:50 Influenza Type A (PCR) Not Detected (NotDetected) 06/24/23 18:50 Influenza Type B (PCR) Not Detected (NotDetected) 06/24/23 18:50 M. pneumoniae (PCR) Not Detected (NotDetected) 06/24/23 18:50 Parainfluenza 1 (PCR) Not Detected (NotDetected) 06/24/23 18:50 Parainfluenza 2 (PCR) Not Detected (NotDetected) 06/24/23 18:50 Parainfluenza 3 (PCR) Not Detected (NotDetected) 06/24/23 18:50 Parainfluenza 4 (PCR) Not Detected (NotDetected) 06/24/23 18:50 RSV (PCR) Not Detected (NotDetected) 06/24/23 18:50 Entero/Rhino (PCR) Not Detected (NotDetected) 06/24/23 18:50 Impressions Chest X-Ray 06/24/23 17:45 SINGLE VIEW CHEST CLINICAL HISTORY: Sepsis. FINDINGS: An AP, portable, upright chest radiograph is compared to chest x-ray and chest CT dated 06/21/2023. The cardiomediastinal silhouette is unremarkable. There is mild patchy airspace consolidation at the right lung base. No large pleural effusion or pneumothorax is seen. The bony thorax is grossly intact. IMPRESSION: Airspace consolidation is seen at the right lung base, typical for pneumonia/aspiration pneumonitis. This has modestly worsened as compared to 06/21/2023. Radiographic follow-up to resolution is recommended. ACT 112: Negative or not required by law. Electronically signed by: Thomas Cruz M.D. 06/24/2023 6:12 PM (1) Sepsis Sepsis acute organ dysfunction status: unspecified Sepsis type: sepsis due to unspecified organism Qualified Code(s): A41.9 - Sepsis, unspecified organism
[2023-06-24] MEDS ORDERED: LORazepam 0.5 MG TAB PO PRN (20:48)
[2023-06-24] MEDS ORDERED: PROMETHAZINE HCL 12.5 MG in SODIUM CHLORIDE 0.9% 50 ML IV PRN (20:51)
[2023-06-24] MEDS ORDERED: BENZONATATE 100 MG CAPSULE PO PRN (20:51)
[2023-06-24 22:05] LABS: Pregnancy Test, Urine Negative (Negative)
[2023-06-25] MEDS: ACETAMINOPHEN 325 MG TAB PO PRN ×4 (03:37→20:09)
[2023-06-25 05:38] LABS: Basophils # (auto) 0.02 K/uL (0.00-0.20); Basophils % (auto) 0.3 %; Eosinophils # (auto) 0.04 K/uL (0.00-0.50); Eosinophils % (auto) 0.6 %; Hematocrit (blood only) 36.2 % (37.0-47.0); Immature Granulocytes # (auto) 0.04 K/uL (0.01-0.20); Immature Granulocytes % (auto) 0.6 %; Lymphocytes # (auto) 0.99 K/uL (1.20-3.40); Lymphocytes % (auto) 14.3 %; Mean Corpuscular Hemoglobin 29.9 pg (25.0-34.0); Mean Corpuscular Hgb Conc 33.1 g/dL (32.0-36.0); Mean Corpuscular Volume 90.3 fL (80.0-100.0); Mean Platelet Volume 8.9 fL (9.4-12.4); Monocytes # (auto) 0.49 K/uL (0.11-0.59); Monocytes % (auto) 7.1 %; Neutrophils # (auto) 5.34 K/uL (1.40-6.50); Neutrophils % (auto) 77.1 %; Platelet Count 257 K/uL (130-400); RDW Coefficient of Variation 13.2 % (11.5-14.5); RDW Standard Deviation 44.1 fL (36.4-46.3); Red Blood Count 4.01 M/uL (4.20-5.40); White Blood Count 6.92 K/ul (4.8-10.8)
[2023-06-25 05:42] LABS: BUN Creatinine Ratio 9.2 (10-20); Calcium 7.6 mg/dl (8.6-10.3); Creatinine Clr Calc Pharmacy 81.1 ml/min; Est GFR (Non-African American) 91.5 ml/min; Potassium 3.6 mmol/L (3.5-5.1)
[2023-06-25] MEDS ORDERED: LOPERAMIDE HCL 2 MG CAP PO PRN (08:44)
[2023-06-25] MEDS: ADVANCED PROBIOTIC 1250 MG CAPSULE PO SCH (09:26)
[2023-06-25] MEDS: ENOXAPARIN INJ 40 MG/0.4 ML SYR SQ SCH (09:27)
[2023-06-25] MEDS: levoFLOXacin 750 MG TAB PO SCH (11:30)
--- NOTE | 2023-06-25 15:25 | Hospitalist Progress Note ---
Date of Service June 25, 2023 Assessment & Plan (1) Sepsis: Plan: Sepsis Secondary to community-acquired pneumonia Mycoplasma on PCR from recent ER visit Failed outpatient treatment --CTA:There is tree-in-bud nodularity and atelectasis in the right middle lobe which may represent infectious/inflammatory process. No pulmonary embolus is seen. Follow-up to resolution is recommended. -- BioFire negative for COVID, RSV, influenza --Blood cultures pending --Sputum studies pending Saturating well on room air Continue Levaquin Received IV fluids Diarrhea Stool for C. difficile negative Imodium as needed DVT Px: Lovenox SQ Code Status Full code Admission and Anticipated Discharge Date Admission Date: June 24, 2023 Subjective Patient is seen and examined at bedside States having cough with yellowish expectoration Also reports some chest discomfort associated with cough Had loose BM but denies any significant diarrhea Also denies any chest pain, dyspnea, nausea, vomiting, abd pain No other complaints Review of Systems Review of Systems: All systems reviewed & are unremarkable except as noted in Subjective Physical Exam Physical Exam: Physical Exam: Vitals signs as noted above General Appearance:Obese, no apparent distress Head: normocephalic, Atraumatic Eyes: normal inspection, EOMI Neck: supple, Trachea midline Respiratory/Chest: Decreased breath sounds, CTA, No accessory muscle use Cardiovascular: S1, S2, No murmur Abdomen/GI:Soft, Non tender, Bowel sounds present Extremities/Musculoskeletal:normal inspection, Trace edema Neurologic/Psych:AAOX3, grossly no focal neurological deficits Skin: normal color, warm Results & Data Results & Data Vital Signs (Past 12 Hours) Vital Signs Temp Pulse Pulse Resp BP Pulse Ox O2 Del Method 06/25/23 14:37 37.8 C H 06/25/23 12:23 37.9 C H 92 H 18 105/67 92 Room Air 06/25/23 08:00 Room Air 06/25/23 07:58 36.7 C 87 20 125/73 91 Room Air 06/25/23 07:55 83 06/25/23 03:40 87 06/25/23 03:27 Room Air 06/25/23 03:25 37.8 C H 102 H 22 145/86 H 95 Room Air Laboratory Results Short CBC 06/24/23 06/25/23 Range/Units 18:25 05:01 WBC 7.15 6.92 (4.8-10.8) K/ul Hgb 13.7 12.0 (12.0-16.0) g/dl Hct 39.6 36.2 L (37.0-47.0) % Plt Count 287 257 (130-400) K/uL BMP 06/24/23 06/25/23 18:25 05:01 Sodium 134 L 139 Potassium 3.5 3.6 Chloride 102 107 Carbon Dioxide 25 25 BUN 9 7 Creatinine 0.79 0.76 Glucose 102 H 94 Calcium 8.9 7.6 L Liver Function 06/24/23 Range/Units 18:25 Total Bilirubin 0.3 (0.2-1.0) mg/dl AST 26 (13-39) U/L ALT 31 (7-52) U/L Alkaline Phosphatase 51 (34-104) U/L Albumin 3.8 (3.4-5.0) gm/dl Urine 06/24/23 Range/Units 18:50 Urine Color Yellow Urine Appearance Clear (Clear) Urine pH 5.5 (4.5-7.5) Ur Specific [place] 1.031 H (1.000-1.030) Urine Protein 2+ H (Negative) Urine Glucose (UA) Negative (Negative) (1) Sepsis Sepsis acute organ dysfunction status: unspecified Sepsis type: sepsis due to unspecified organism Qualified Code(s): A41.9 - Sepsis, unspecified organism
[2023-06-26 06:10] LABS: Calcium 8.2 mg/dl (8.6-10.3); Creatinine Clr Calc Pharmacy 82.1 ml/min; Est GFR (African American) 107.7 ml/min; Est GFR (Non-African American) 92.9 ml/min; Magnesium 1.9 mg/dl (1.7-2.4); Potassium 3.3 mmol/L (3.5-5.1)
[2023-06-26] MEDS: ACETAMINOPHEN 325 MG TAB PO PRN (06:14)
[2023-06-26 06:20] LABS: Hematocrit (blood only) 35.2 % (37.0-47.0); Hemoglobin 12.2 g/dl (12.0-16.0); Mean Corpuscular Hgb Conc 34.7 g/dL (32.0-36.0); Mean Corpuscular Volume 86.5 fL (80.0-100.0); Mean Platelet Volume 9.1 fL (9.4-12.4); Platelet Count 282 K/uL (130-400); RDW Coefficient of Variation 13.2 % (11.5-14.5); RDW Standard Deviation 41.7 fL (36.4-46.3); Red Blood Count 4.07 M/uL (4.20-5.40); White Blood Count 7.95 K/ul (4.8-10.8)
[2023-06-26] MEDS: ADVANCED PROBIOTIC 1250 MG CAPSULE PO SCH (08:34)
[2023-06-26] MEDS: ENOXAPARIN INJ 40 MG/0.4 ML SYR SQ SCH (08:35)
[2023-06-26] MEDS ORDERED: POTASSIUM CHLORIDE CRTAB 20 MEQ TABCR PO ONE (09:39)
[2023-06-26] MEDS ORDERED: POTASSIUM CHLORIDE CRTAB 20 MEQ TABCR PO SCH (09:39)
[2023-06-26] MEDS: levoFLOXacin 750 MG TAB PO SCH (12:34)
--- NOTE | 2023-06-26 13:21 | Hospitalist Progress Note ---
Date of Service June 26, 2023 Assessment & Plan (1) Sepsis: Plan: Sepsis Secondary to community-acquired pneumonia Mycoplasma on PCR from recent ER visit Failed outpatient treatment --CTA:There is tree-in-bud nodularity and atelectasis in the right middle lobe which may represent infectious/inflammatory process. No pulmonary embolus is seen. Follow-up to resolution is recommended. -- BioFire negative for COVID, RSV, influenza --Blood cultures negative to date --Sputum studies: Moderate normal jessika Saturating well on room air Continue Levaquin Received IV fluids Plan to transition to p.o. antibiotics to complete the course Diarrhea Stool for C. difficile negative Imodium as needed DVT Px: Lovenox SQ Code Status Full code Disposition Home Admission and Anticipated Discharge Date Admission Date: June 24, 2023 Subjective Patient is seen and examined at bedside States feeling lot better today Still has cough No diarrhea today Denies any chest pain, dyspnea, nausea, vomiting, abd pain Eager to get discharged Review of Systems Review of Systems: All systems reviewed & are unremarkable except as noted in Subjective Physical Exam Physical Exam: Physical Exam: Vitals signs as noted above General Appearance:Obese, no apparent distress Head: normocephalic, Atraumatic Eyes: normal inspection, EOMI Neck: supple, Trachea midline Respiratory/Chest: Decreased breath sounds, CTA, No accessory muscle use Cardiovascular: S1, S2, No murmur Abdomen/GI:Soft, Non tender, Bowel sounds present Extremities/Musculoskeletal:normal inspection, Trace edema Neurologic/Psych:AAOX3, grossly no focal neurological deficits Skin: normal color, warm Results & Data Results & Data Vital Signs (Past 12 Hours) Vital Signs Temp Pulse Pulse Resp BP Pulse Ox O2 Del Method 06/26/23 11:43 36.6 C 89 18 126/79 90 Room Air 06/26/23 09:00 90 06/26/23 07:41 37.3 C 83 18 125/79 93 Room Air 06/26/23 04:49 37.9 C H 90 18 117/75 93 Room Air 06/26/23 02:00 82 Laboratory Results Short CBC 06/26/23 Range/Units 05:32 WBC 7.95 (4.8-10.8) K/ul Hgb 12.2 (12.0-16.0) g/dl Hct 35.2 L (37.0-47.0) % Plt Count 282 (130-400) K/uL BMP 06/26/23 05:32 Sodium 133 L Potassium 3.3 L Chloride 100 Carbon Dioxide 24 BUN 6 Creatinine 0.75 Glucose 90 Calcium 8.2 L (1) Sepsis Sepsis acute organ dysfunction status: unspecified Sepsis type: sepsis due to unspecified organism Qualified Code(s): A41.9 - Sepsis, unspecified organism
--- NOTE | 2023-06-26 13:26 | Discharge Summary ---
Date of Service June 26, 2023 Admission HPI Per Admitting Provider History obtained from patient, family, and records. No significant medical history. 1 week history of dry cough symptoms associated with chest pain, myalgias and fever. Denies aspiration. Not sure about sick contacts. Patient has received COVID-19 vaccination. Patient seen at the ER 3 days ago. Chest x-ray showed right middle lobe pneumonia. PCR test positive for mycoplasma pneumonia. Patient discharged on azithromycin and albuterol inhaler course. Worsening symptoms and shortness of breath despite compliance with medications. Cough symptoms now junky. Loose stools without abdominal pain. Patient returned to ER for evaluation. Ceftriaxone administered at the ER. Medical History as above Surgical History : Family History : Personal/Social history : Principal Diagnosis Sepsis Community-acquired pneumonia Discharge Data Allergies Allergy/AdvReac Type Severity Reaction Status Date / Time No Known Allergies Allergy Unverified 06/24/23 18:17 Consultations 06/24/23 19:52 ED Decision to Admit Stat Procedures Performed Laboratory Results WBC 7.95 K/ul (4.8-10.8) 06/26/23 05:32 RBC 4.07 M/uL (4.20-5.40) L 06/26/23 05:32 Hgb 12.2 g/dl (12.0-16.0) 06/26/23 05:32 Hct 35.2 % (37.0-47.0) L 06/26/23 05:32 MCV 86.5 fL (80.0-100.0) 06/26/23 05:32 MCH 30.0 pg (25.0-34.0) 06/26/23 05:32 MCHC 34.7 g/dL (32.0-36.0) 06/26/23 05:32 RDW Std Deviation 41.7 fL (36.4-46.3) 06/26/23 05:32 RDW Coeff of [place] 13.2 % (11.5-14.5) 06/26/23 05:32 Plt Count 282 K/uL (130-400) 06/26/23 05:32 MPV 9.1 fL (9.4-12.4) L 06/26/23 05:32 Immature Gran % (Auto) 0.6 % 06/25/23 05:01 Neut % (Auto) 77.1 % 06/25/23 05:01 Lymph % (Auto) 14.3 % 06/25/23 05:01 [place] % (Auto) 7.1 % 06/25/23 05:01 Eos % (Auto) 0.6 % 06/25/23 05:01 Baso % (Auto) 0.3 % 06/25/23 05:01 Neut # (Auto) 5.34 K/uL (1.40-6.50) 06/25/23 05:01 Lymph # (Auto) 0.99 K/uL (1.20-3.40) L 06/25/23 05:01 [place] # (Auto) 0.49 K/uL (0.11-0.59) 06/25/23 05:01 Eos # (Auto) 0.04 K/uL (0.00-0.50) 06/25/23 05:01 Baso # (Auto) 0.02 K/uL (0.00-0.20) 06/25/23 05:01 Immature Gran # (Auto) 0.04 K/uL (0.01-0.20) 06/25/23 05:01 PT 11.5 Seconds (9.0-12.0) 06/24/23 18:25 INR 1.1 (0.9-1.1) 06/24/23 18:25 APTT 31.6 Seconds (21.0-31.0) H 06/24/23 18:25 PTT Ratio 1.1 06/24/23 18:25 Sodium 133 mmol/L (136-145) L 06/26/23 05:32 Potassium 3.3 mmol/L (3.5-5.1) L 06/26/23 05:32 Chloride 100 mmol/L (98-107) 06/26/23 05:32 Carbon Dioxide 24 mmol/L (21-32) 06/26/23 05:32 Anion Gap 9 (3-11) 06/26/23 05:32 BUN 6 mg/dl (6-23) 06/26/23 05:32 Creatinine 0.75 mg/dl (0.6-1.2) 06/26/23 05:32 Est Cr Clr Drug Dosing 82.1 ml/min 06/26/23 05:32 Est GFR ( Amer) 107.7 ml/min 06/26/23 05:32 Est GFR (Non-Af Amer) 92.9 ml/min 06/26/23 05:32 BUN/Creatinine Ratio 8.0 (10-20) L 06/26/23 05:32 Glucose 90 mg/dl (70-99(Fasting)) 06/26/23 05:32 Lactate 0.8 mmol/L (0.4-2.0) 06/24/23 18:41 Calcium 8.2 mg/dl (8.6-10.3) L 06/26/23 05:32 Magnesium 1.9 mg/dl (1.7-2.4) 06/26/23 05:32 Total Bilirubin 0.3 mg/dl (0.2-1.0) 06/24/23 18:25 AST 26 U/L (13-39) 06/24/23 18:25 ALT 31 U/L (7-52) 06/24/23 18:25 Alkaline Phosphatase 51 U/L (34-104) 06/24/23 18:25 Troponin I High Sens 4.5 pg/ml (0-14) 06/24/23 18:25 Total Protein 7.2 gm/dl (6.0-8.3) 06/24/23 18:25 Albumin 3.8 gm/dl (3.4-5.0) 06/24/23 18:25 Globulin 3.4 gm/dl (2.5-4.0) 06/24/23 18:25 Albumin/Globulin Ratio 1.1 (0.9-2) 06/24/23 18:25 Procalcitonin < 0.05 ng/ml (0-0.5) 06/24/23 18:25 Urine Color Yellow 06/24/23 18:50 Urine Appearance Clear (Clear) 06/24/23 18:50 Urine pH 5.5 (4.5-7.5) 06/24/23 18:50 Ur Specific [place] 1.031 (1.000-1.030) H 06/24/23 18:50 Urine Protein 2+ (Negative) H 06/24/23 18:50 Urine Glucose (UA) Negative (Negative) 06/24/23 18:50 Urine Ketones Trace (Negative) H 06/24/23 18:50 Urine Blood Trace (Negative) H 06/24/23 18:50 Urine Nitrite Negative (Negative) 06/24/23 18:50 Urine Bilirubin Negative (Negative) 06/24/23 18:50 Urine Urobilinogen Negative (Negative) 06/24/23 18:50 Ur Leukocyte Esterase Negative (Negative) 06/24/23 18:50 Urine WBC (Auto) 1-5 /hpf (0-5) 06/24/23 18:50 Urine RBC (Auto) 5-10 /hpf (0-4) H 06/24/23 18:50 U Hyaline Cast (Auto) 1-5 /lpf (0-5) 06/24/23 18:50 U Epithel Cells (Auto) 20-30 /lpf (0-5) H 06/24/23 18:50 Urine Bacteria (Auto) Negative (Negative) 06/24/23 18:50 Urine Test Negative (Negative) 06/24/23 21:24 Nasal Screen MRSA (PCR) Negative (Negative) 06/25/23 18:00 Stl C. diff Tox B Gene Negative Cdiff Gene (Neg) 06/24/23 21:24 Adenovirus (PCR) Not Detected (NotDetected) 06/24/23 18:50 B. pertussis DNA (PCR) Not Detected (NotDetected) 06/24/23 18:50 B.parapertussis DNA PCR Not Detected (NotDetected) 06/24/23 18:50 C. pneumoniae DNA (PCR) Not Detected (NotDetected) 06/24/23 18:50 Coronavirus OC43 (PCR) Not Detected (NotDetected) 06/24/23 18:50 Coronavirus HKU1 (PCR) Not Detected (NotDetected) 06/24/23 18:50 Coronavirus 229E (PCR) Not Detected (NotDetected) 06/24/23 18:50 SARS-CoV-2 (PCR) Not Detected (NotDetected) 06/24/23 18:50 Coronavirus NL63 (PCR) Not Detected (NotDetected) 06/24/23 18:50 Human Metapneumovir PCR Not Detected (NotDetected) 06/24/23 18:50 Influenza Type A (PCR) Not Detected (NotDetected) 06/24/23 18:50 Influenza Type B (PCR) Not Detected (NotDetected) 06/24/23 18:50 M. pneumoniae (PCR) Not Detected (NotDetected) 06/24/23 18:50 Parainfluenza 1 (PCR) Not Detected (NotDetected) 06/24/23 18:50 Parainfluenza 2 (PCR) Not Detected (NotDetected) 06/24/23 18:50 Parainfluenza 3 (PCR) Not Detected (NotDetected) 06/24/23 18:50 Parainfluenza 4 (PCR) Not Detected (NotDetected) 06/24/23 18:50 RSV (PCR) Not Detected (NotDetected) 06/24/23 18:50 Entero/Rhino (PCR) Not Detected (NotDetected) 06/24/23 18:50 Impressions Chest X-Ray 06/24/23 17:45 SINGLE VIEW CHEST CLINICAL HISTORY: Sepsis. FINDINGS: An AP, portable, upright chest radiograph is compared to chest x-ray and chest CT dated 06/21/2023. The cardiomediastinal silhouette is unremarkable. There is mild patchy airspace consolidation at the right lung base. No large pleural effusion or pneumothorax is seen. The bony thorax is grossly intact. IMPRESSION: Airspace consolidation is seen at the right lung base, typical for pneumonia/aspiration pneumonitis. This has modestly worsened as compared to 1 08/21/2022. Radiographic follow-up to resolution is recommended. ACT 112: Negative or not required by law. Electronically signed by: Thomas Cruz M.D. 06/24/2023 6:12 PM Hospital Course (1) Sepsis: Sepsis Secondary to community-acquired pneumonia Mycoplasma on PCR from recent ER visit Failed outpatient treatment --CTA:There is tree-in-bud nodularity and atelectasis in the right middle lobe which may represent infectious/inflammatory process. No pulmonary embolus is seen. Follow-up to resolution is recommended. -- BioFire negative for COVID, RSV, influenza --Blood cultures negative to date --Sputum studies: Moderate normal jessika Saturating well on room air Continue Levaquin Received IV fluids Plan to transition to p.o. antibiotics to complete the course Diarrhea Stool for C. difficile negative Imodium as needed DVT Px: Lovenox SQ Code Status Full code Disposition Home Total Time Total Time Spent Total Time Spent (In Minutes): 53 minutes Discharge Plan Discharge Items Patient Disposition: Home - Self-Care Reason For Visit: SEPSIS Discharge Diagnosis: Sepsis Community-acquired pneumonia Activity: Per Instructions section Exercise/Sports: Wait until after follow-up appointment Non-emergency contact: Primary Care Provider Call non-emergency contact if: you have any medication questions, your symptoms worsen, your pain is concerning for you and you have a fever Follow-up/Referrals: PCP,NO [Primary Care Provider] - Diet: Heart Healthy Addtl Attending Provider Instructions: Follow-up with your primary care physician in 1 week --- Complete antibiotic course levofloxacin as prescribed for 5 more days --Final blood culture results are pending at the time of discharge. Follow-up with your physician for results. Seek immediate medical attention if your symptoms reoccur or worsen Please take all medications as instructed on discharge list below. Please call if you have any questions or problems. You can reach a [facility] hospitalist on duty at [facility] 24 hours a day by calling [phone] Pending Studies at Discharge: Yes Studies:: Blood Cultures Stand-Alone Forms: [facility], Smoking Cessation Medications and DC Order Prescriptions: New levofloxacin 750 mg Tablet 750 mg PO DAILY@1100 Qty: 5 0RF Rx Instructions: Start taking from 06/27/23 benzonatate 100 mg Capsule 100 mg PO TID PRN (Reason: cough) Qty: 30 0RF Advanced Probiotic 625 mg (10 billion cell) Capsule 2 cap PO DAILY Qty: 30 0RF Continued albuterol sulfate 90 mcg/actuation HFA aerosol inhaler 1 inh inhalation Q6H PRN (Reason: shortness of breath or wheezing) Qty: 8.5 0RF Discontinued azithromycin 250 mg tablet 250 mg PO DAILY 4 Days Qty: 4 0RF Rx Instructions: start on day 2 of therapy Discharge Orders: Discharge Order (Routine); Ordered 06/26/23 Ordered By: Sumeet Francois Admission Data Admit Date/Time: 06/24/23 20:50 Attending Provider: Sumeet Francois Admit Provider: David Hernandez Primary Care Provider: PCP,NO Other Providers: David Hernandez
--- NOTE | 2023-06-27 22:11 | Electrocardiogram Report ---
Test Reason : Blood Pressure : / mmHG Vent. Rate : 106 BPM Atrial Rate : 106 BPM P-R Int : 134 ms QRS Dur : 100 ms QT Int : 316 ms P-R-T Axes : 035 001 012 degrees QTc Int : 419 ms Sinus tachycardia Possible Left atrial enlargement Incomplete right bundle branch block Cannot rule out Inferior infarct , age undetermined Possible Anterior infarct (cited on or before 24-JUN-2023) Abnormal ECG When compared with ECG of 21-JUN-2023 09:02, No significant change was found Confirmed by Alo White ([id number]) on 06/27/2023 10:11:27 PM Referred By: REFERRED SELF Confirmed By:Alo White
== END 2023-06-26 13:57 | disposition home or self-care (01) | DRG 871 ==
LOC: ED 17:38 → EDINP 20:50 → 2W 23:16